=== PATIENT | female | born 1990 | race Caucasian/White ===

== ENCOUNTER 2017-04-10 16:35 | Emergency (ER) | payer OTHER ==
[2017-04-10] MEDS ORDERED: Lidocaine 1% with EPINEPHrine 1:100,000 20 ML MDV INFILT ONE (16:36)
[2017-04-10 17:00] VITALS: BP 141/79
--- NOTE | 2017-04-13 09:32 | ER ---
DATE SEEN: 04/10/2017 The patient was seen at 1715 hours. HISTORY OF PRESENT ILLNESS: Gia has a small laceration in her left hand. Tetanus up-to-date. Otherwise, no allergies, no serious illnesses or hospitalizations. EXAM: She has a Small hockey-stick laceration 1 cm x 1 cm on left hand dorsum between the 1st and 2nd distal metacarpal which transects the dermis. It does not involving the intertrigo area of the hand. Wound was cleansed vigorously and injected with lidocaine with bicarb and then closed with 3 stitches of interrupted 4-0 Ethilon. The patient tolerated the procedure well. Tetanus is up-to-date. ASSESSMENT: Laceration, single layer closure. The patient is to have the sutures removed in 10 to 14 days. Keep clean. /[id number] KYLIE/JAZMIN
--- NOTE | 2017-05-05 11:33 | ER ---
DATE SEEN: 04/10/2017 CORRECTION: Wound was cleansed vigorously and injected with lidocaine without bicarb. /[id number] KYLIE/JAZMIN
== END 2017-04-10 17:25 | disposition home or self-care (01) ==
LOC: FB.ED 16:35
DX: S61.412A Laceration without foreign body of left hand, initial encounter (principal); W45.8XXA Other foreign body or object entering through skin, initial encounter
CPT/HCPCS: 12001; 96372; 99000; 99283; A4217

== ENCOUNTER 2018-12-20 06:53 | Day surgery (SDC) | payer OTHER ==
[~2018-12-20 06:53] MED LIST: Sodium Chloride 0.9% 10 ML Syringe FLUSH PRN
[2018-12-20] MEDS ORDERED: Lidocaine 1% PF 2 ML SDV INJECT ONE (06:54)
[2018-12-20] MEDS ORDERED: Propofol 200 MG/20 ML SDV IV ONE (06:54)
[2018-12-20] MEDS: Lactated Ringers 1,000 ML IV SCH (07:31)
--- NOTE | 2018-12-20 08:25 | PCM.OPNOTE ---
- General Post-Op/Procedure Note Date of Surgery/Procedure: 12/20/18 Operative Procedure(s): c scope with bx Findings: nl scope Pre Op Diagnosis: diarrhea Post-Op Diagnosis: Same Anesthesia Technique: MAC Primary Surgeon: Vikas Kuhn Anesthesia Provider: [facility] Pathology: random biopsies Complications: None Condition: Good Free Text/Narrative:: see dictation
[2018-12-20] MEDS: Acetaminophen 500 MG Tab PO ONE (09:07)
[2018-12-20 09:40] VITALS: BP 125/65
--- NOTE | 2018-12-20 12:28 | OR ---
DATE OF OPERATION: 12/20/2018 SURGEON: Vikas Kuhn MD PROCEDURE PERFORMED: Colonoscopy with cold forceps biopsy. PREOPERATIVE DIAGNOSIS: Personal history of diarrhea. POSTOPERATIVE DIAGNOSIS: Grossly normal colon. INDICATIONS FOR PROCEDURE: This is a 28-year-old white female who presents with a history of diarrhea. She was offered and accepted a colonoscopy as part of her workup. DESCRIPTION OF OPERATION: After an excellent IV sedation was administered, digital rectal exam was performed. No marked abnormality was noted. Flexible colonoscope was inserted and advanced to the cecum. Prep was excellent. Attempts to intubate the terminal ileum were not successful. The following findings were noted. Ascending colon, unremarkable. Random biopsies were taken. Transverse colon, unremarkable. Random biopsies were taken. Descending colon, unremarkable. Random biopsies were taken. Sigmoid and rectum, unremarkable. Random biopsies were taken. Colon was deflated. Scope was removed. The patient tolerated the procedure well. /[id number] /MODL
== END 2018-12-20 09:40 | disposition home or self-care (01) ==
LOC: FB.SDS 06:53
PROVIDERS: ATTEND Surgery
DX: R19.7 Diarrhea, unspecified (principal); K21.9 Gastro-esophageal reflux disease without esophagitis; J45.909 Unspecified asthma, uncomplicated; F17.210 Nicotine dependence, cigarettes, uncomplicated; Z79.1 Long term (current) use of non-steroidal anti-inflammatories (NSAID); Z79.3 Long term (current) use of hormonal contraceptives; Z79.51 Long term (current) use of inhaled steroids; Z79.899 Other long term (current) drug therapy; Z88.0 Allergy status to penicillin
CPT/HCPCS: 81025; 88305; A9270-GY; J2001; J2704; J7120